=== PATIENT | female | born 1995 | race African-American/Black ===

== ENCOUNTER 2024-02-26 15:47 | Emergency (ER) | payer BC, OTHER ==
[2024-02-26] MEDS ORDERED: Bacitracin 1 PK ONE (17:00)
== END 2024-02-26 17:14 | disposition home or self-care (01) ==
LOC: NAV ERS 15:47
DX: S01.112A Laceration without foreign body of left eyelid and periocular area, initial encounter (principal); F17.290 Nicotine dependence, other tobacco product, uncomplicated; W22.8XXA Striking against or struck by other objects, initial encounter
CPT/HCPCS: 12011; 99282

== ENCOUNTER 2024-03-04 23:22 | Emergency (ER) | payer BC | END 2024-03-04 23:41 | disposition home or self-care (01) | LOC: NAV ERS 23:22 | DX: S01.112D Laceration without foreign body of left eyelid and periocular area, subsequent encounter (principal); F17.290 Nicotine dependence, other tobacco product, uncomplicated; X58.XXXD Exposure to other specified factors, subsequent encounter ==